=== PATIENT | female | born 2000 | race Caucasian/White ===

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

== ENCOUNTER 2020-02-22 09:52 | Emergency (ER) | payer BC ==
[2020-02-22 10:04] VITALS: BP 115/72; PULSE 55
--- NOTE | 2020-02-22 10:25 | EDM.PDOC ---
ED HPI GENERAL MEDICAL PROBLEM - General Chief Complaint: Syncope Stated Complaint: SYNCOPE EPISODE AT [facility] Time Seen by Provider: 02/22/20 10:17 Source of Information: Reports: Patient History Limitations: Reports: No Limitations - History of Present Illness INITIAL COMMENTS - FREE TEXT/NARRATIVE: 19-year-old female presents to the ED per private vehicle i.e. her mother drove her to the hospital. History suggest she went to the [facility] this morning here in [place]. She states her appointment was around 0900 hrs. While seated in the chair she suddenly slumped over and was unresponsive according to the hairstylist for 1 to 2 minutes. They caught her and therefore she did not fall to the floor get hurt. There was no jerking movements to suggest seizure activity. When she regained consciousness she was alert oriented and talking appropriately. Here in the ED she does not remember of course what happened. She complains that she is mildly nauseated. She denies having any pain to precipitate any vasovagal reaction. Denies any dysmenorrhea. Denies any heavy drinking over the weekend. No recent nausea vomiting or diarrhea. She did in fact eat breakfast this morning i.e. oatmeal which is her normal. Vital signs reveal O2 sats of 100% heart rate 56 in sinus and BP 121/78. She denies any headache at this time. She reports 1 previous fainting episode in the past. She denies feeling any fluttering in her chest. She reports she has been on oral control pills for greater than 3 months. She does not have any periods while on the pill. Onset: Today, Sudden Onset Date: 02/22/20 Onset Time: 09:30 Duration: Minutes: (The hairstylist indicated that she was probably unresponsive for 1 to 2 minutes.), Other (Patient is back to normal at the time she is seen in the ED.) Location: Reports: Other (Syncope while seated in chair at [facility] this morning) Quality: Reports: Other (Syncopal event.) Severity: Moderate Improves with: Reports: Other Worsens with: Reports: None (Improved spontaneously before coming to the ED.) Context: Reports: Other (Spontaneous occurrence while seated in hairstylist salon 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 Denies: Activity, Exercise, Lifting, Sick Contact, Trauma Associated Symptoms: Reports: Nausea/Vomiting. Denies: Confusion, Chest Pain, Cough, cough w sputum, Diaphoresis, Fever/Chills, Headaches, Loss of Appetite, Malaise, Rash, Seizure (Mildly nauseated at this time.), Shortness of Breath, Syncope, Weakness Treatments JAVA DESIGNER: Reports: Other (see below) (None. She takes her medication what sounds like Zoloft at bedtime control pill daily.) - Related Data Allergies Allergy/AdvReac Type Severity Reaction Status Date / Time No Known Allergies Allergy Verified 02/22/20 10:04 Home Meds: Home Meds . 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 Social & Family History - Tobacco Use Tobacco Use Status *Q: Never Tobacco User - Caffeine Use Caffeine Use: Reports: None - Recreational Drug Use Recreational Drug Use: No ED ROS GENERAL - Review of Systems Review Of Systems: See Below Constitutional: Denies: Fever, Chills, Malaise, Weakness, Fatigue, Decreased Appetite, Weight Loss HEENT: Reports: No Symptoms Respiratory: Reports: No Symptoms Cardiovascular: Reports: Syncope (In the past about 4 years ago at age 15.) Endocrine: Reports: No Symptoms GI/Abdominal: Reports: No Symptoms : Reports: No Symptoms Musculoskeletal: Reports: No Symptoms Skin: Reports: No Symptoms Neurological: Reports: No Symptoms Psychiatric: Reports: No Symptoms Hematologic/Lymphatic: Reports: No Symptoms Immunologic: Reports: No Symptoms - Physical Exam Exam: See Below Exam Limited By: No Limitations General Appearance: Alert, WD/WN, No Apparent Distress, Other (Temperature is 36.4 with a heart rate of 55 I sinus bradycardia on the monitor. Respiratory rate of 14 with O2 sats of 100% on room air. BP 115/72) Eye Exam: Bilateral Eye: Normal Inspection, PERRL Throat/Mouth: Normal Inspection, Normal Lips, Normal Oropharynx Head Exam: Atraumatic, Normocephalic Neck: Normal Inspection, Supple, Non-Tender, Full Range of Motion. No: Carotid Bruit, Lymphadenopathy (L), Lymphadenopathy (R) Respiratory/Chest: No Respiratory Distress, Lungs Clear, Normal Breath Sounds, No Accessory Muscle Use Cardiovascular: Normal Peripheral Pulses, Regular Rate, Rhythm, No Edema, No Gallop, No JVD, No Murmur GI/Abdominal: Normal Bowel Sounds, Soft, Non-Tender, No Organomegaly, No Mass, Pelvis Stable Neuro Exam (Abbreviated): Alert, Oriented, CN II-XII Intact, Normal Cognition, Normal Gait Back Exam: Normal Inspection, Full Range of Motion. No: CVA Tenderness (L), CVA Tenderness (R) Extremities: Normal Inspection, Normal Range of Motion, Non-Tender, No Pedal Edema, Other (No clinical evidence of DVT.) Psychiatric: Normal Affect, Normal Mood Skin Exam: Warm, Dry, Intact, Normal Color #1 Interpretation EKG Date: 02/22/20 Time: 10:34 Rhythm: Other (Sinus bradycardia) Rate (Beats/Min): 53 [place]: Normal P-Wave: Present QRS: Other (Early R wave transition consider septal hypertrophy pattern. Likely normal for age. Left ventricular perjury pattern again likely normal for age.) ST-T: Other (Diffuse early repolarization pattern with mild ST segment elevation in leads V4 to V6 leads to 3 and aVF due to repolarization pattern.) QT: Normal EKG Interpretation Comments: Borderline ECG likely normal for age. Course - Vital Signs Last Recorded V/S: Last Vital Signs Temp 36.4 C 02/22/20 10:02 Pulse 55 L 02/22/20 10:02 Resp 14 02/22/20 10:02 BP 115/72 02/22/20 10:02 Pulse Ox 100 02/22/20 10:02 Orthostatic Blood Pressure [ 115/78 Standing] Orthostatic Blood Pressure [ 117/73 Sitting] Orthostatic Blood Pressure [ 112/64 Supine] - Orders/Labs/Meds Orders: Active Orders 24 hr Category Date Time Status EKG Documentation Completion [RC] STAT Care 02/22/20 10:24 Active Orthostatic Vital Signs [RC] ASDIRECTED Care 02/22/20 10:17 Active URINALYSIS W/MICROSCOPIC [UA W/MICROSCOPIC] [URIN] Stat Lab 02/22/20 10:24 Ordered Dextrose 5%-0.9% NaCl [Dextrose 5%-Normal Saline] 1,000 Med 02/22/20 10:30 Active ml IV ASDIRECTED Medication Orders Dextrose/Sodium Chloride (Dextrose 5%-Normal Saline) 1,000 mls @ 999 mls/hr IV ASDIRECTED SAYDA Last Admin: 02/22/20 10:33 Dose: 999 mls/hr Documented by: ARMANDO Labs: Laboratory Tests 02/22/20 02/22/20 02/22/20 Range/Units 10:25 10:25 10:25 WBC 5.04 (3.98-10.04) K/mm3 RBC 4.44 (3.98-5.22) M/mm3 Hgb 13.7 (11.2-15.7) gm/dl Hct 41.8 (34.1-44.9) % MCV 94.1 D (79.4-94.8) fl MCH 30.9 (25.6-32.2) pg MCHC 32.8 (32.2-35.5) g/dl RDW Std Deviation 40.4 (36.4-46.3) fL Plt Count 231 (182-369) K/mm3 MPV 9.3 L (9.4-12.3) fl Neut % (Auto) 49.4 (34.0-71.1) % Lymph % (Auto) 38.3 (19.3-51.7) % [place] % (Auto) 8.3 (4.7-12.5) % Eos % (Auto) 3.2 (0.7-5.8) Baso % (Auto) 0.8 (0.1-1.2) % Neut # (Auto) 2.49 (1.56-6.13) K/mm3 Lymph # (Auto) 1.93 (1.18-3.74) K/mm3 [place] # (Auto) 0.42 H (0.24-0.36) K/mm3 Eos # (Auto) 0.16 (0.04-0.36) K/mm3 Baso # (Auto) 0.04 (0.01-0.08) K/mm3 Sodium 142 (136-145) mEq/L Potassium 4.3 (3.5-5.1) mEq/L Chloride 105 (98-107) mEq/L Carbon Dioxide 29 (21-32) mEq/L Anion Gap 12.3 (5-15) BUN 22 H (7-18) mg/dL Creatinine 0.9 (0.55-1.02) mg/dL Est Cr Clr Drug Dosing 115.06 mL/min Estimated GFR (MDRD) > 60 (>60) mL/min BUN/Creatinine Ratio 24.4 H (14-18) Glucose 96 (74-106) mg/dL Calcium 9.5 (8.5-10.1) mg/dL Magnesium 2.0 (1.8-2.4) mg/dl Total Bilirubin 0.6 (0.2-1.0) mg/dL AST 25 (15-37) U/L ALT 31 (14-59) U/L Alkaline Phosphatase 62 (46-116) U/L C-Reactive Protein 0.3 (<1.0) mg/dL Total Protein 7.4 (6.4-8.2) g/dl Albumin 4.1 (3.4-5.0) g/dl Globulin 3.3 gm/dL Albumin/Globulin Ratio 1.2 (1-2) HCG, Qual Negative (NEGATIVE) Meds: Medications Generic Name Dose Route Start Last Admin Trade Name Freq PRN Reason Stop Dose Admin Dextrose/Sodium Chloride 1,000 mls @ 999 mls/hr 02/22/20 10:30 02/22/20 10:33 Dextrose 5%-Normal Saline IV 999 mls/hr ASDIRECTED SAYDA Administration - Radiology Interpretation Free Text/Narrative:: 19-year-old female presents to the ED after a syncopal event while seated in the [employer] chair here in [place] this morning. Discussion with a [employer] indicated that she simply slumped over and was unresponsive for 1 to 2 minutes with no signs of seizure activity. When she regained consciousness she was alert oriented and could talk normally with no postictal signs. At the time of presentation to the ED she is feeling mildly nauseated but otherwise well. She did have breakfast this morning and does not appear volume depleted. Examination was otherwise normal other than sinus bradycardia on exam. Plan routine labs to be performed including a beta-hCG. IV D5 normal saline at open. Orthostatic BPs to be done. - Re-Assessments/Exams Free Text/Narrative Re-Assessment/Exam: 02/22/20 11:06 White count is normal at 5.04. The auto differential shows 49.4% neutrophils. Hemoglobin is 13.7 with hematocrit of 41.8. Platelet counts 231,000. Sodium is 142. Potassium 4.3. Chloride 105 with a bicarb of 29. Anion gap is 12.3. BUN is 22 with a creatinine of 0.9 and a GFR greater than 60. Glucose is 96. Calcium normal at 9.5. Magnesium normal at 2.0. Liver function is normal. C-reactive protein is normal at 0.3. Total protein is 7.4 with an albumin fraction of 4.1. 02/22/20 11:17 patient reports that she feels fine. Lab test essentially were normal. I do not have any definitive definitive reason for her to have had a syncopal event. Unfortunately orthostatic blood pressures did not get checked. At this point time I have advised conservative treatment with plenty of fluids in the morning and maintain hydration. If symptoms recur further investigations would be in order by way of Holter monitor and echocardiogram. Does not appear to have any neurological etiology. Departure - Departure Time of Disposition: 11:18 Disposition: Home, Self-Care 01 Condition: Fair Clinical Impression: Syncope and collapse - Discharge Information *PRESCRIPTION DRUG MONITORING PROGRAM REVIEWED*: Not Applicable *COPY OF PRESCRIPTION DRUG MONITORING REPORT IN PATIENT SHUKRI: Not Applicable Instructions: Syncope, [id number] Referrals: Danielle Lozano PA-C [Primary Care Provider] - Forms: ED Department Discharge Additional Instructions: Evaluation in the emergency room today in regards to a fainting episode that occurred while seated at the hair salon this morning. Reportedly were unre sponsive for 1 to 2 minutes but no sign of any seizure activity occurred and when you regain consciousness you were alert oriented answering questions appropriately and speaking normally. This suggests no seizure activity precipitated syncope episode. Heart rate likes to stay low because you are in good shape and young. Also blood pressure is on the lower side of normal. It usually is a drop in blood pressure that precipitated decreased blood flow to the brain to cause syncope collapse. No abnormalities were detected on lab exam or on ECG testing. Neuro exam is normal. At this point time continue all medications as previously prescribed. If any further fainting episodes occur within the next 6 months then further investigations are in order. Sepsis Event Note (ED) - Evaluation Sepsis Screening Result: No Definite Risk - Focused Exam Vital Signs: Vital Signs Temp Pulse Resp BP Pulse Ox 02/22/20 10:02 36.4 C 55 L 14 115/72 100 - My Orders Last 24 Hours: My Active Orders 02/22/20 10:17 Orthostatic Vital Signs [RC] ASDIRECTED 02/22/20 10:24 EKG Documentation Completion [RC] STAT URINALYSIS W/MICROSCOPIC [UA W/MICROSCOPIC] [URIN] Stat 02/22/20 10:30 Dextrose 5%-0.9% NaCl [Dextrose 5%-Normal Saline] 1,000 ml IV ASDIRECTED - Assessment/Plan Last 24 Hours: My Active Orders 02/22/20 10:17 Orthostatic Vital Signs [RC] ASDIRECTED 02/22/20 10:24 EKG Documentation Completion [RC] STAT URINALYSIS W/MICROSCOPIC [UA W/MICROSCOPIC] [URIN] Stat 02/22/20 10:30 Dextrose 5%-0.9% NaCl [Dextrose 5%-Normal Saline] 1,000 ml IV ASDIRECTED
[2020-02-22] MEDS ORDERED: Dextrose 5%-0.9% NaCl 1,000 ML IV SCH (10:30)
== END 2020-02-22 11:52 | disposition home or self-care (01) ==
LOC: JD.ED 09:52
DX: R55 Syncope and collapse (principal); R00.1 Bradycardia, unspecified
CPT/HCPCS: 36415; 80053; 83735; 84703; 85025; 86140; 93005; 99284; J7042